=== PATIENT | female | born 1975 | race Two or more races ===

== ENCOUNTER 2024-09-05 12:10 | Day surgery (SDC) | payer BC, MEDICAID, SELFPAY ==
[2024-09-05] VITALS (10 sets, daily range): BP systolic 112–153; BP diastolic 65–89; PULSE 60–96; RESP 11–20; TEMP 36.3–37; O2SAT 92–98; BMI 27.8
[2024-09-05] MEDS: SODIUM CHLORIDE 0.9% 100 ML IV (13:10)
[2024-09-05] MEDS: MIDAZOLAM INJ 1 MG/ML VIAL 2 ML 2 MG IV (13:19)
[2024-09-05] MEDS: fentaNYL CIT INJ 50 mCg/ML AMP 2ML IV (13:21)
== END 2024-09-05 14:22 | disposition home or self-care (01) ==
PROVIDERS: PCP Family Medicine; Referring Provider Surgery; Visit Provider Surgery
PROC: 0DBE8ZX Excision of Large Intestine, Via Natural or Artificial Opening Endoscopic, Diagnostic (ICD-10-PCS; CPT 45380; principal; 2024-09-05 13:45)
DX: Z12.11 Encounter for screening for malignant neoplasm of colon (principal)
CPT/HCPCS: 45378; 81025; A4217; A4649; J2250; J3010; J7050

== ENCOUNTER → 2024-10-31 | Outpatient (CLI) | payer BC, MEDICAID, SELFPAY ==
[2024-10-31 11:47] LABS: Misc Send Out* See Sep Rpt
[2024-10-31 12:15] LABS: Basophils % (Auto) 0 % (0-2.5); Eosinophils # (Auto) 0.1 Thou/mm3 (0.0-0.5); Eosinophils % (Auto) 1 % (0-10); Hematocrit 36.7 % (36.0-46.0); Hemoglobin 12.5 g/dL (12.0-16.0); Immature Granulocytes % (Auto) 0 % (0-0); Immature Granulocytes Auto 0.01 Thou/mm3 (0.00-0.00); Lymphocytes # (Auto) 1.7 Thou/mm3 (1.0-4.8); Lymphocytes % (Auto) 31 % (10-50); Mean Corpuscular HGB Conc 34.1 g/dl (31.0-37.0); Mean Corpuscular Hemoglobin 30.8 pg (25.0-35.0); Mean Corpuscular Volume 90 fL (80-100); Monocytes # (Auto) 0.3 Thou/mm3 (0.0-0.8); Monocytes % (Auto) 5 % (0-12); Neutrophils # (Auto) 3.5 Thou/mm3 (1.8-7.7); Neutrophils % (Auto) 62 % (37-80); Nucleated Red Blood Cell % 0 /100 WBC (0); Platelet Count 374 Thou/mm3 (140-440); RDW Standard Deviation 39.5 fL (36.4-46.3); Red Blood Count 4.06 Miln/mm3 (4.00-5.20); White Blood Count 5.6 Thou/mm3 (3.6-11.0)
[2024-10-31 12:26] LABS: Alanine Aminotransferase 21 U/L (10-49); Albumin, Serum 4.3 gm/dL (3.5-5.0); Albumin/Globulin Ratio 1.8 (1.2-2.2); Alkaline Phosphatase 49 U/L (46-116); Anion Gap 9 (7-16); Aspartate Amino Transferase 15 U/L (0-34); BUN/Creatinine Ratio 26 Ratio (12-20); Bilirubin,Total 0.4 mg/dL (0.3-1.2); Blood Urea Nitrogen 13 mg/dL (9-23); Carbon Dioxide 23.3 mMol/L (20.0-31.0); Chloride 105 mMol/L (98-107); Creatinine (Component) 0.5 mg/dL (0.6-1.3); Globulin 2.4 gm/dL (2.3-3.5); Glucose 123 mg/dL (74-106); Osmolality,Calculated 274 (275-295); Potassium 3.8 mMol/L (3.4-5.1); Sodium 137 mMol/L (136-145); Total Protein 6.7 gm/dL (5.7-8.2); Uric Acid 3.2 mg/dL (3.1-7.8); eGFR > 60 See Note
[2024-10-31 13:30] LABS: Sed Rate (ESR) 3 mm/hr (0-30)
[2024-10-31 16:01] LABS: RA Screen Negative (Negative)
[2024-11-08 06:37] LABS: ANA Screen, IFA NEGATIVE (NEGATIVE)
== END | disposition home or self-care (01) ==
PROVIDERS: PCP Physician Assistant; Referring Provider Physician Assistant; Visit Provider Physician Assistant
DX: M25.50 Pain in unspecified joint (principal)
CPT/HCPCS: 36415; 80053; 84550; 85025; 85652; 86038; 86430

== ENCOUNTER → 2024-12-02 | Outpatient (CLI) | payer BC, MEDICAID, SELFPAY ==
--- NOTE | 2024-12-02 12:30 | XR_ITS ---
Examination: Breast ultrasound, unilateral, left complete Date and time of exam: December 02, 2024 1215 hours INDICATIONS: Outside mammogram July 23, 2024 architectural distortion medial left breast Technique: Real-time laird scale ultrasonographic imaging performed left breast including all 4 quadrants as well as nipple retroareolar and axillary region. Findings: 3:00 cyst 4 x 3 mm 6:00 cyst 10 x 10 mm No solid nodules Smaller cysts IMPRESSION: BI-RADS Category 2: Benign findings
--- NOTE | 2024-12-02 13:00 | XR_ITS ---
Examination: Diagnostic digital mammography, unilateral, left Computer aided detection 3-D breast Tomosynthesis, unilateral Date and time of exam: November 24, 2024 1238 hours INDICATIONS: Outside mammogram July 23, 2024 architectural distortion 2 cm medial left breast Technique: Nonmagnified MLO, CC views of the left breast have been obtained, reconstructed from 3-D Tomosynthesis images. R2 computer aided detection program utilized for evaluation of suspicious masses and/or abnormal calcifications. 3-D Tomosynthesis images obtained. Findings: The breast is heterogeneously dense, which may obscure small masses Benign calcifications No suspicious lesion depicted Impression: BI-RADS category 2: Benign findings Recommend yearly follow-up mammography
== END | disposition home or self-care (01) ==
LOC: CDIM 12:07
PROVIDERS: PCP Physician Assistant; Referring Provider Advanced Practice Midwife; Visit Provider Advanced Practice Midwife
DX: R92.322 Mammographic fibroglandular density, left breast (principal); N60.02 Solitary cyst of left breast
CPT/HCPCS: 76641; 77061; 77065; G0279